=== PATIENT | male | born 1970 | race Two or more races ===

== ENCOUNTER 2018-09-09 06:46 | Day surgery (SDC) | payer OTHER ==
[~2018-09-09] VITALS: Ht 121.9 cm; Wt 44.0 kg
[2018-09-09 07:04] VITALS: BP 141/100
[2018-09-09 13:35] VITALS: BP 135/85
== END 2018-09-09 11:15 | disposition home or self-care (01) ==
LOC: DS 06:46 → GI 07:30 → OR 07:30 → DS 11:15
PROVIDERS: Internal Medicine Gastroenterology
PROC: 0DB68ZX Excision of Stomach, Via Natural or Artificial Opening Endoscopic, Diagnostic (ICD-10-PCS; principal; 2018-09-09 07:30)
DX: R13.10 Dysphagia, unspecified (principal); K21.9 Gastro-esophageal reflux disease without esophagitis; M41.9 Scoliosis, unspecified; F72 Severe intellectual disabilities; G80.9 Cerebral palsy, unspecified
CPT/HCPCS: 43235; C1769; J1200; J1610; J2250; J2310; J3010; J3490